=== PATIENT | male | born 1995 | race Caucasian/White ===

== ENCOUNTER 2021-06-23 10:00 | Outpatient (CLI) | payer OTHER ==
[2021-06-23 10:38] VITALS: BP 111/71
--- NOTE | 2021-06-23 10:38 | SLEEP CARE CONSULTATION ---
Information from patient questionnaire entered by Izabel Caruso. I have reviewed and concur with the information entered by Izabel Caruso. This document represents the service I personally performed and the decisions made by me, Joana Mahan ARNP. History of Present Illness Service Date and Time: 06/23/2021 1000 Reason for Visit: New patient Chief Complaint: reports: Unrefreshed sleep, Snoring, Excessive daytime sleepiness, Observed pauses in breathing, Fatigue, Other (HAVE TO SLEEP WITH MOUTH OPEN). denies: Frequent awakenings at night Date of Onset: 4-5 years Usual bedtime: 0931-7120 Time it takes to fall asleep: 30-60 minutes Snores at night: Yes Observed to quit breathing while asleep: Yes Sleeps alone due to snoring: No (wears ear plugs) Number of times waking at night: 1-2 Reasons for waking at night: reports: Snoring, Other (unknown reason). denies: Choking, Gasping for air Toss, Turn, or Twitch while sleeping: Yes Recalls having dreams: Yes Usually gets out of bed at: 0645; weekends about 0800 Feels refreshed in the morning: No Morning headache: No Sleepy or fatigued during the day: Yes Ever fallen asleep while driving: No Takes day naps: No Dreams during day naps: Yes Prior sleep studies: No Additional HPI information: I had the pleasure of seeing JUANITA EPPS today regarding the possibility of him having a sleep disorder. His current complaints are observed pauses in breathing, fatigue, snoring and unrefreshed sleep. He has come in due to trouble breathing while sleep and daytime fatigue no matter how much sleep he gets. His has seen that he has stops breathing when asleep, he snores loudly and making other noises when asleep. His wears earplugs at night to be able to sleep but does not leave the room. He does have a history of anxiety and depression. His father snores loudly but has never been evaluated for sleep apnea. - Parasomnia Symptoms Ever been unable to move upon waking from sleep: No Walks in sleep: No Talks in sleep: Yes Ever acted out dreams in sleep: Yes Ever felt weak in the knees when startled or emotional: Yes (has not fallen to ground) Bothered by creepy, crawly, restless sensations in legs: Yes (happens in afternoon when at desk or when trying to sleep/rest) Problems with memory or concentration: Yes (concentration mostly) Subjective Initial [place] Sleepiness Scale score: 9 (06/2021) Past Medical History Past Medical History: reports: Anxiety, Depression Social History The patient's occupation is a [employer]. Patient is and lives in [place]. Have you smoked in the past 12 months: No Alcohol use: Yes Alcohol amount and frequency: 3 drinks, less than weekly Caffeine use: Yes Caffeine amount and frequency: 1-2 cups coffee/day Family History Family history of sleep disordered breathing: Yes Family Hx Sleep Apnea: Father: Snoring Allergies and Home Medications Drug allergies reviewed: Yes (NKDA) Home medication list reviewed: Yes Allergy and home medication list: Zoloft, for depression Hydroxyzine, as needed for sleep or anxiety Review of Systems Weight gain over past 5 years: 60 Cardiovascular: reports: palpitations Respiratory: reports: shortness of breath Gastrointestinal: reports: heartburn Neurological: denies: headaches Psychiatric: reports: anxiety, depression. denies: Attention Deficit Hyperactivity, mood disorder Ear/Nose/Throat: reports: hoarseness, wisdom teeth removed (has 2 left). denies: injury to nose, tonsillectomy Endocrine: reports: sluggishness Immunologic: reports: allergies to food or environment (environmental allergies) Physical Exam Blood Pressure: 111/71 Cuff size: wrist Heart Rate: 71 O2 Saturation: 100 Height: 5 ft 11 in Weight: 284 lb (with boots/fatigues on) Body Mass Index: 39.6 BMI Classification: Obese Neck circumference: 18.2 (inches) Nostrils: partially obstructed (on right nare) Mouth and throat: narrow oropharynx Soft palate: normal Hard palate: normal Uvula: normal Uvula visualization: 100% Mallampati Class I Tongue: normal in size Tonsils: 2+ Neck: normal w/o lymphadenopathy or thyromegaly Heart: regular rate and rhythm Lungs: clear bilaterally Impression and Plan 1. Suspected Obstructive Sleep Apnea-Hypopnea Syndrome, as suggested by a history of loud and irregular snoring, observed cessation of breath while asleep, unrefreshed sleep, cognitive impairment, and excessive daytime sleepiness. Narrow oropharynx and obesity are common predisposing factors for obstructive sleep apnea-hypopnea syndrome. I recommend proceeding to polysomnography to confirm the diagnosis and to assess severity. If the patient has significant sleep disordered breathing, a manual CPAP titration study will also be performed to find the optimal treatment pressure. I informed the patient of what the sleep studies involve and after some discussion, obtained agreement to proceed. The pathophysiology of obstructive sleep apnea-hypopnea syndrome was discussed with the patient and health risks of cardiovascular and cerebrovascular disease if not treated. AAS brochure for obstructive sleep apnea-hypopnea syndrome given and reviewed. Risks of drowsy driving discussed in detail and patient advised to avoid long distance driving and to loop puller at the first sign of drowsiness. Patient agreed to plan. * Schedule polysomnography +- manual CPAP titration study and return in 1-2 weeks after the study to discuss result and initiate therapy. * Avoid long distance driving or driving when feeling sleepy. * Avoid alcohol, sedative and muscle relaxant around bedtime. * Attempt to lose weight. * Review instructions provided by trained office staff on how to prepare for the sleep study. * Return for follow-up after sleep study completed. Counseling Topics: Weight loss health impact Visit Type: In Office Time Spent with Patient (minutes): 33 Provider Statement: I spent 100% of the Face to Face Visit with the patient with greater than 50% spent counseling the patient and coordination of care.
== END 2021-06-23 10:01 | disposition home or self-care (01) ==
LOC: SC 10:00
PROVIDERS: ATTEND Nurse Practitioner Family
DX: R06.83 Snoring (principal); R06.81 Apnea, not elsewhere classified; R41.89 Other symptoms and signs involving cognitive functions and awareness; G47.10 Hypersomnia, unspecified; G47.8 Other sleep disorders; E66.9 Obesity, unspecified; Z68.39 Body mass index [BMI] 39.0-39.9, adult
CPT/HCPCS: 99203; 99212

== ENCOUNTER 2021-06-30 13:04 | Outpatient (CLI) | payer OTHER | END 2021-06-30 13:05 | disposition home or self-care (01) | LOC: SC 13:04 | PROVIDERS: ATTEND Nurse Practitioner Family | DX: G47.33 Obstructive sleep apnea (adult) (pediatric) (principal); R09.02 Hypoxemia | CPT/HCPCS: 95806 ==

== ENCOUNTER 2021-07-02 13:02 | Outpatient (CLI) | payer OTHER ==
--- NOTE | 2021-07-02 13:29 | SLEEP CARE CONSULTATION ---
Information from patient questionnaire entered by Izabel Caruso. I have reviewed and concur with the information entered by Izabel Caruso. This document represents the service I personally performed and the decisions made by me, Joana Mahan ARNP. History of Present Illness Service Date and Time: 07/02/2021 1302 Initial [place] Sleepiness Scale score: 9 (06/2021) Current [place] Sleepiness Scale score: 13 Additional HPI information: JUANITA EPPS returns for follow up and results of the recently performed home sleep study. I explained the pathophysiology behind obstructive sleep apnea. We then spent quite a bit of time discussing different treatment options. For mild obstructive sleep apnea, surgery and oral appliance are alternatives to nasal CPAP therapy but in moderate or severe cases, nasal CPAP is the most effective and reliable treatment. Because apnea is primarily in supine position, then positional management therapy could be effective. Methods discussed such as positioning with pillows, using a T-shirt with tennis balls in the back, and shown commercial products that have a pillow format on back to prevent supine sleep. I reviewed the impact of weight changes on sleep apnea and strongly recommended losing weight. After some discussion, the patient opted to go with the nasal CPAP therapy. Nasal autoCPAP set at 4-15 cmH20 will be ordered with rationale explained. A manual titration study will be ordered if unable to find optimal pressure with office adjustments. I explained how CPAP machine works with sample devices Respironics Dreamstation and ResSocial Touch [id number] and what to expect when using the machine. Using CPAP every night in order to get used to it was emphasized. Patient advised to put CPAP mask on before getting into bed so as not to fall asleep without CPAP. To assist acclimation to CPAP use, it could also be used for a short time during day while reading or watching TV. The patient was instructed to call the CPAP supplier to discuss any mechanical problem that may occur. If the mask given is uncomfortable or is difficult to keep on through the night even with adjustment, contact the CPAP supplier as many will replace with another mask style if notified before 30 days. If snoring or perceives is not getting enough air or too much air from the machine, notify this office. [facility] patient education PAP tips reviewed and given to patient. Patient counseled not drink alcohol less than 4 hours before bedtime as it can increase snoring and apnea. Patient was cautioned about risks of drowsy driving until sleepiness symptoms resolve. Sleep Study - Results Type of Sleep Study: Home sleep study Prior sleep studies: Yes Year and Where: 06/2021 [facility] Polysomnography/Home Sleep Study results: Physician Impression: The quality of the study is good. The length of the study is adequate (> 240 minutes). Please also see the tabulated and graphic data. 1. Obstructive Sleep Apnea-Hypopnea (ICD-10 G47.33), mild, with an AHI of 8.5/hr and carrie SaO2 of 89%. During the study, the patient had 18 apneas (18 obstructive, 0 central, 0 mixed) and 48 hypopneas. The longest episode lasted 61.0 seconds. The respiratory events occurred more frequently during supine sleep (supine AHI was 10.9 and non-supine, 5.53). 2. Hypoxemia (ICD-10 R09.02), minimal, with the lowest oxygen saturation of 89 % and 0.1 minutes with SaO2 under 90%. Baseline oxygen saturation was normal (Average oxygen saturation was 95%). Allergies and Home Medications Home medication list reviewed: Yes (no changes) Review of Systems Review of systems same as previous: Yes (no changes) Physical Exam Heart Rate: 73 O2 Saturation: 97 Height: 5 ft 11 in Weight: 284 lb Body Mass Index: 39.6 BMI Classification: Obese Impression and Plan 1. Obstructive Sleep Apnea-Hypopnea Syndrome, mild, with lowest oxygen saturation of 89%. Obviously this is the cause of the patients symptoms of unrefreshed sleep, and excessive daytime sleepiness. Positive pressure therapy could benefit anxiety and depression. As mentioned above, the patient will be started on nasal autoCPAP therapy with pressure set at 4-15 cmH2O. A manual titration study will be completed if unable to find optimal treatment pressure with office adjustments. Compliance guidelines also reviewed. A copy of compliance guidelines will be given for reference at check out. Because the apnea is more severe supine, I instructed to avoid sleeping supine using pillow positioning until able to start CPAP use. 2. Hypoxemia, minimal, with the lowest oxygen saturation of 89 % and 0.1 minutes with SaO2 under 90%. His baseline oxygen saturation was normal with an average oxygen saturation of 95%. * Nasal auto CPAP therapy, pressure at 4-15 cm H2O. * Attempt to lose weight. * Avoid alcohol consumption near bedtime. * Avoid supine sleep until using CPAP. * The patient is again cautioned about driving until sleepiness completely resolves. * Return one month after CPAP obtained. I will assess response to therapy and compliance at that time. Counseling Topics: Weight loss health impact Visit Type: In Office Time Spent with Patient (minutes): 21 Provider Statement: I spent 100% of the Face to Face Visit with the patient with greater than 50% spent counseling the patient and coordination of care.
== END 2021-07-02 13:03 | disposition home or self-care (01) ==
LOC: SC 13:02
PROVIDERS: ATTEND Nurse Practitioner Family
DX: G47.33 Obstructive sleep apnea (adult) (pediatric) (principal); R09.02 Hypoxemia; E66.9 Obesity, unspecified; Z68.39 Body mass index [BMI] 39.0-39.9, adult
CPT/HCPCS: 99212; 99213

== ENCOUNTER 2021-11-27 12:24 | Outpatient (CLI) | payer OTHER ==
--- NOTE | 2021-11-27 13:26 | SLEEP CARE CONSULTATION ---
Information from patient questionnaire entered by Brandon Yen MA. I have reviewed and concur with the information entered by Brandon Yen MA. This document represents the service I personally performed and the decisions made by , Joana Mahan ARNP. History of Present Illness Service Date and Time: 11/27/2021 1224 Previous diagnosis: Mild, Obstructive Sleep Apnea-Hypopnea Syndrome AHI: 8.5 (in 06/2021) Reason for follow up: first compliance (SET UP 09/01) Equipment type: CPAP Equipment obtained from: [employer] (got initial supplies and replacement of damaged mask) Mask style: Nasal Backup mask available: No (will keep old mask when replace) Last cushion change: 1 month Prior sleep studies: Yes Year and Where: 06/2021 [facility] Type of Sleep Study: Home sleep study HPI additional information: JUANITA EPPS was diagnosed to have mild, AHI 8.5, obstructive sleep apnea- hypopnea syndrome and returned today for CPAP therapy first compliance follow- up. Sleep Study - Results Type of Sleep Study: Home sleep study Prior sleep studies: Yes Year and Where: 06/2021 [facility] CPAP Compliance Data - Data Reviewed with Patient Average duration of nightly device use: 5 HOURS 45 MINUTES Compliance rate %: 73 Current pressure setting (cmH2O): 4-15 (median 5.2, avg 7.7, max 9.6) Average residual AHI: 0.5 Central apnea: .0 Obstructive apnea: .4 Average large leak: 7.2 Subjective Patient concerns: reports: condensation in mask/hose (sometimes). denies: aerophagia, mask discomfort, air blowing in eyes, mask leak noise, nasal congestion, dry mouth, nose, throat, epistaxis Observed to snore while using device: Yes (occasional if does not put tape to keep mouth closed; none with tape on) Current pressure setting perceived as: comfortable On therapy, patient: reports: sleeping better, awakening more refreshed, being more awake and alert during the day, more rested overall. denies: drowsiness while driving Initial [place] Sleepiness Scale score: 9 (06/2021) Current [place] Sleepiness Scale score: 5 Allergies and Home Medications Home medication list reviewed: Yes (no changes) Review of Systems Review of systems same as previous: Yes (no changes) Physical Exam Vital signs obtained and entered by: Cali YEN CMA RODOLFO Blood Pressure: 112/87 Cuff size: wrist Heart Rate: 72 O2 Saturation: 94 Height: 5 ft 11 in Weight: 282 lb Weight change since last visit: 2 lb loss Body Mass Index: 39.3 BMI Classification: Obese Impression and Plan 1. Obstructive Sleep Apnea-Hypopnea Syndrome, mild, with good treatment compliance and excellent apnea control. On CPAP therapy, the patient has better sleep quality and is more rested overall. He states that the pressure has felt comfortable except for one night he woke up because the pressure was about 9 cmH2O or so. The patients pressure will be changed to autoCPAP 7-8 cmH20 to reflect pressures being used and for patient comfort level. Patient advised to contact me if pressure change is uncomfortable so that it can be adjusted. Goals for apnea control discussed. Juanita started with a full face mask but about 2 weeks later his dog got ahold of it and chewed it up. He called for a replacement and received a nasal cushion mask that he does find comfortable. He states he has to use tape to keep his mouth closed. I advised trying a chin strap if he continues to use a nasal mask. He told me he may go back to the full face when he is able to order supplies. Patient's apnea severity and rationale for treatment to reduce apnea, improve sleep quality and reduce cardiovascular and cerebrovascular events was reviewed. I also reviewed the benefit of consistent device use of CPAP for depression/anxiety. 2. Obesity, unspecified. Patient has lost weight. Currently patients BMI is 39.3. Obesity increases the risk of apnea, CPAP pressure requirements and overall health risks especially cardiovascular and diabetes. Thus patient is advised to try to lose weight. Weight loss can be done with reducing portion size, reducing refined foods and balancing content with vegetables, fruit and whole grain foods. In addition, patient encouraged to get regular exercise. The patient's CPAP pressure range should accommodate some weight loss. Symptoms to report for additional pressure adjustment discussed. * Change auto CPAP pressure to 7-8 cmH2O * Notify me if snoring with mask or feeling that the pressure is too much or too little * Attempt to lose weight * Call this office if any problems using CPAP * Return for follow up in 1-2 months, or sooner if concerns arise Counseling Topics: Spare mask, Weight loss health impact Visit Type: In Office Time Spent with Patient (minutes): 21 Provider Statement: I spent 100% of the Face to Face Visit with the patient with greater than 50% spent counseling the patient and coordination of care.
[2021-11-27 13:27] VITALS: BP 112/87
== END 2021-11-27 12:25 | disposition home or self-care (01) ==
LOC: SC 12:24
PROVIDERS: ATTEND Nurse Practitioner Family
DX: G47.33 Obstructive sleep apnea (adult) (pediatric) (principal); E66.9 Obesity, unspecified; Z68.39 Body mass index [BMI] 39.0-39.9, adult
CPT/HCPCS: 99212; 99213

== ENCOUNTER 2022-01-20 08:00 | Outpatient (CLI) | payer OTHER | END 2022-01-20 23:59 | disposition home or self-care (01) | LOC: LAB.N 08:00 | PROVIDERS: ATTEND Family Medicine | DX: R11.2 Nausea with vomiting, unspecified (principal); Z20.822 Contact with and (suspected) exposure to COVID-19 ==